=== PATIENT | female | born 2000 | race African-American/Black ===

== ENCOUNTER 2021-05-18 19:16 | Emergency (ER) | payer OTHER ==
[~2021-05-18] VITALS: Ht 170.2 cm; Wt 67.9 kg
[2021-05-18] MEDS ORDERED: CYCL5TAB PO (19:46)
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
[2021-05-18] MEDS ORDERED: ORPHENADRINE CITRATE 60 MG/2 ML VIAL. IM ONE (20:15)
[2021-05-18] MEDS ORDERED: KETOROLAC 60 MG/2 ML VIAL. IM ONE (20:15)
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
[2021-05-18] MEDS ORDERED: CONTRAST GIVEN. MC PRN (20:45)
[2021-05-18] MEDS ORDERED: IOHEXOL 350 MG/ML 100 ML VIAL. IV ONE (20:45)
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
[2021-05-18 22:08] VITALS: BP 117/61
== END 2021-05-18 22:09 | disposition home or self-care (01) ==
LOC: ER 19:16
DX: S16.1XXA Strain of muscle, fascia and tendon at neck level, initial encounter (principal); S20.219A Contusion of unspecified front wall of thorax, initial encounter; V49.9XXA Car occupant (driver) (passenger) injured in unspecified traffic accident, initial encounter; Y93.89 Activity, other specified; Y92.89 Other specified places as the place of occurrence of the external cause; Y99.8 Other external cause status
CPT/HCPCS: 70490; 71250; 71275; 81025; 96372; 99285; J1885; J2360; Q9967